=== PATIENT | male | born 1955 | race Caucasian/White ===

== ENCOUNTER 2017-02-07 11:32 | Emergency (ER) | payer OTHER ==
[~2017-02-07] VITALS: Ht 175.3 cm; Wt 94.0 kg
[~2017-02-07 11:32] MED LIST: CYCL-36 PO; LORT5TAB PO
[2017-02-07 11:38] VITALS: BP 132/79; PULSE 80; RESP 18; TEMP 98.4; O2SAT 96
[2017-02-07] MEDS ORDERED: LISI-515 PO (11:57)
[2017-02-07] MEDS ORDERED: LOVA20TA PO (11:57)
--- NOTE | 2017-02-07 12:37 | PD ---
HPI Chief Complaint: Musculoskeletal Complaint Time Seen by Provider: 12:36 Travel History International Travel<30 days: No Contact w/Intl Traveler<30days: No Traveled to known affect area: No History of Present Illness HPI 50-year-old male presents to the ED for evaluation of left knee pain. Onset at 1 PM yesterday when he twisted it trying to get out of a work vehicle. On presentation he endorses 5/10 pain, 10/10 with attempted ambulation or motion of the knee. He states that holding the knee in slight flexion improved his pain. Endorses occasional tingling of the foot. He denies weakness of the musculature. He endorses previous injury to the area stating that he had torn meniscus and has dislocated the knee in the past. He has been ambulatory with a walker. No treatment attempted at home. PFSH Past Medical History Cancer: No Cardiovascular Problems: Yes (HIGH CHOLESTEROL) High Cholesterol: Yes Diabetes: Yes (DIET CONTROLLED) Patient Takes Glucophage: No Endocrine: No GERD: Yes Genitourinary: No Hepatitis: No Hiatal Hernia: No Hypertension: Yes Immune Disorder: No Musculoskeletal: No Neurologic: No Psychiatric: No Reproductive: No Respiratory: Yes (SLEEP APNEA, CPAP) Thyroid Disease: No Influenza Vaccination: No Past Surgical History AICD: No Cholecystectomy: Yes Joint Replacement: No Pacemaker: No Tonsillectomy: Yes Social History Alcohol Use: No (DENIES) Tobacco Use: No Substance Use: No Allergies-Medications (Allergen,Severity, Reaction): Coded Allergies: No Known Allergies (Unverified , 02/07/17) Reported Meds & Prescriptions Reported Meds & Active Scripts Active Ibuprofen 600 Mg Tab 600 Mg PO Q8HR Reported Lovastatin 20 Mg Tab 20 Mg PO DAILY Lisinopril 20 Mg Tab 20 Mg PO DAILY Review of Systems Except as stated in HPI: all other systems reviewed are Neg Physical Exam Narrative GENERAL: Well-nourished, well-developed pleasant white male in no acute distress. SKIN: Warm and dry. HEAD: Normocephalic. EYES: No scleral icterus. No injection or drainage. NECK: Supple, trachea midline. No JVD or lymphadenopathy. CARDIOVASCULAR: Regular rate and rhythm without murmurs, gallops, or rubs. RESPIRATORY: Breath sounds equal bilaterally. No accessory muscle use. GASTROINTESTINAL: Abdomen soft, non-tender, nondistended. MUSCULOSKELETAL: No cyanosis, or edema. Focused left lower extremity exam: 2+ radial pulse. Moderate edema of the medial and lateral aspects of the knee. No patellar balloting. Tender to palpation of bilateral joint lines. Flexion to approximately 55. Extension to 0. Varus/valgus stress testing elicits pain. No popliteal tenderness. No popliteal masses. Sensation intact to light touch distally. Cap refill less than 2 seconds. BACK: Nontender without obvious deformity. No CVA tenderness. Data Data Last Documented VS Vital Signs Date Time Temp Pulse Resp B/P Pulse Ox O2 Delivery O2 Flow Rate FiO2 02/07/17 11:38 98.4 80 18 132/79 96 Room Air Orders Knee, Complete (4vws) (02/07/17 ) ^ Anil Bandage (02/07/17 13:02) ^ Knee Immobilizer (02/07/17 13:02) Crutches (02/07/17 13:02) Sling Cradle Arm (02/07/17 ) MDM Medical Decision Making Medical Screen Exam Complete: Yes Emergency Medical Condition: Yes Differential Diagnosis strain versus sprain versus fracture versus other Narrative Course 50-year-old male presents to the ED for evaluation of left knee pain. Onset at 1 PM yesterday when he twisted it trying to get out of a work vehicle. On presentation he endorses 5/10 pain, 10/10 with attempted ambulation or motion of the knee. He states that holding the knee in slight flexion improved his pain. Endorses occasional tingling of the foot. He denies weakness of the musculature. He endorses previous injury to the area stating that he had torn meniscus and has dislocated the knee in the past. He has been ambulatory with a walker. Vitals reviewed. Physical exam reveals 2+ radial pulse. Moderate edema of the medial and lateral aspects of the knee. No patellar balloting. Tender to palpation of bilateral joint lines. Flexion to approximately 55. Extension to 0. Varus/valgus stress testing elicits pain. No popliteal tenderness. No popliteal masses. Sensation intact to light touch distally. Cap refill less than 2 seconds. Patient was administered an icepack. X-rays reveal a prepatellar effusion, osteoarthritis, quad tendon and patellar ligament spurring, no acute fracture per radiology read. Suspect ligamentous injury. Patient was placed in a knee immobilizer with an Anil wrap and crutches. He is instructed to toe-touch weight-bear as tolerated, follow-up with the orthopedist. Provided a short course of anti-inflammatory medications. He indicated understanding of instructions. He was amenable to plan of care. Stable and discharged home. Diagnosis Primary Impression: Left knee sprain Qualified Code: S83.92XA - Sprain of left knee, unspecified ligament, initial encounter Additional Impressions: Left knee pain Qualified Code: M25.562 - Acute pain of left knee Prepatellar effusion of left knee Referrals: Kamaljit Holland MD Patient Instructions: General Instructions, Knee Sprain (ED) Departure Forms: Tests/Procedures, Work Release Special Instructions: May not remove the knee immobiler until cleared by the orthopedist. Additional Instructions: Rest, ice, elevate the extremity. Apply ice no longer than 10-15 minutes per hour a few times a day. Toe-touch weightbearing as tolerated. Only remove the knee immobilizer for showering. 600 mg ibuprofen 3 times a day as prescribed. Follow up with orthopedist this week as discussed. Return to the ED for any urgent or emergent medical condition. Med/Other Pt SpecificInfo: Prescription(s) given Scripts Ibuprofen 600 Mg [id number] Mg PO Q8HR #15 TAB Ref 0 Prov:Ava Parrish MD 02/07/17 Disposition: 01 DISCHARGE HOME Condition: Stable Ashley Fry Feb 07, 2017 12:37
--- NOTE | 2017-02-07 12:45 | RADHPO ---
EXAM DATE/TIME: 02/07/2017 11:57 [facility] COMPARISON: No previous studies available for comparison. INDICATIONS : Left knee pain; twisted leg yesterday. MEDICAL HISTORY: None. SURGICAL HISTORY: Meniscus repair. ENCOUNTER: Initial ACUITY: 2 days PAIN SCORE: 9/10 LOCATION: Left knee. FINDINGS: There is a large suprapatellar knee joint effusion. Moderate osteoarthritis is noted involving the p atellofemoral and medial femoral tibial joints. There is no acute fracture or dislocation of the lef t knee. Spurring is noted at the insertion of the quadriceps tendon and the patella ligament. CONCLUSION: 1. Large suprapatellar knee joint effusion. 2. Moderate osteoarthritis involving the patellofemoral and medial femoral tibial joints. 3. No acute fracture or dislocation. 4. Spurring at the insertion of the quadriceps tendon and the patella ligament. Con Hoffman MD on February 07, 2017 at 12:29 Board Certified Radiologist. This report was verified electronically.
[2017-02-07] MEDS ORDERED: IBUP-232 PO (13:03)
== END 2017-02-07 13:40 | disposition home or self-care (01) ==
LOC: PHEFT 11:32
DX: S83.92XA Sprain of unspecified site of left knee, initial encounter (principal); I10 Essential (primary) hypertension; E78.00 Pure hypercholesterolemia, unspecified; X50.0XXA Overexertion from strenuous movement or load, initial encounter; Y93.89 Activity, other specified; Y92.812 Truck as the place of occurrence of the external cause; Y99.0 Civilian activity done for income or pay
CPT/HCPCS: 73564; 99283